=== PATIENT | male | born 1995 | race Caucasian/White ===

== ENCOUNTER 2021-08-10 14:52 | Outpatient (CLI) | payer OTHER ==
--- NOTE | 2021-08-10 16:58 | MRI Report ---
PROCEDURE: Foot LT W/O INDICATIONS: FOOT PAIN TECHNIQUE: Noncontrast sagittal T1 spin echo and T2 fast spin echo with fat saturation, long-axis T1 spin echo a nd T2 fast spin echo with fat saturation, short-axis proton density fast spin echo and T2 fast spin e cho with fat saturation through the forefoot. COMPARISON: None. FINDINGS: Image quality: Excellent. Bones and joints: Mild osseous edema is seen within the first metatarsal head and proximal phalangeal base surrounding the first metacarpophalangeal joint as well as the medial hallux sesamoid. Mild deg enerative changes are seen in the first metatarsophalangeal joint with a small nonspecific joint effu elisa. The lateral hallux sesamoid appears sclerotic. Remaining visualized osseous structures are inta ct. Soft tissues: Nonspecific soft tissue edema is seen in the interspace between the first and second m etatarsal heads. There is a small intermetatarsal bursal effusion in the first interspace. The visual ized plantar foot muscles demonstrate normal signal and bulk. Small amount of fluid is seen along th e plantar aspect of the flexor tendons at the level of the proximal third toe. Remaining visualized f lexor and extensor tendons appear intact, without tenosynovitis. Sagittal images demonstrate no evid ence for plantar plate tears. IMPRESSION: 1.Osseous edema and soft tissue edema surrounding the first metatarsophalangeal joint with a small avery int effusion, which may be secondary to osseous contusions versus an acute infectious or inflammatory process such as septic arthritis, gout, or psoriatic or reactive arthritis, among other etiologies. 2.Mild tenosynovitis of the distal third flexor tendons. Reviewed by: Nish De Los Santos MD on 08/10/2021 4:57 PM PDT Approved by: Nish De Los Santos MD on 08/10/2021 4:57 PM PDT Station ID: [id number]
== END 2021-08-10 14:53 | disposition home or self-care (01) ==
LOC: DI 14:52
PROVIDERS: ATTEND Student in an Organized Health Care Education/Training Program
DX: M25.572 Pain in left ankle and joints of left foot (principal); M79.9 Soft tissue disorder, unspecified; M25.475 Effusion, left foot; M65.872 Other synovitis and tenosynovitis, left ankle and foot